=== PATIENT | male | born 1950 | race Caucasian/White ===

== ENCOUNTER 2023-12-29 08:27 | Day surgery (SDC) | payer OTHER ==
[2023-12-29] MEDS ORDERED: Lactated Ringers 1,000 ML IV ONE (09:03)
[2023-12-29] MEDS: Lactated Ringers 1,000 ML IV SCH (09:06)
[2023-12-29 09:14] VITALS: RESP 18; TEMP 98.5
[2023-12-29] MEDS ORDERED: Xylocaine-Mpf 2% 5 Ml Vial ONE (10:23)
[2023-12-29] MEDS ORDERED: DIPRIVAN 200 MG/20 ML IV ONE ×2 (10:23→10:36)
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
[2023-12-29 11:51] VITALS: BP 117/71; PULSE 92; O2SAT 92
--- NOTE | 2023-12-29 15:14 | OP ---
SURGERY DATE/TIME: 12/29/2023 4418 - [id number] PREOPERATIVE DIAGNOSIS: History of polyps, needs followup screening colonoscopy. POSTOPERATIVE DIAGNOSES: 1) Poor prep. 2) Small internal hemorrhoids. 3) Diverticulosis. 4) Transverse colon polyps, 2 of which could be removed with snare polypectomy and 1 was a little larger and flatter that could not be removed safely endoscopically at this setting. 5) Tortuous colon. 6) ASA Class III. PROCEDURES: 1) Colonoscopy to ascending colon (further passage aborted secondary to tortuous colon and poor prep). 2) Hot biopsy more sessile polyp, seemed to be proximal transverse colon (unable to be completely removed endoscopically). Ink spot tattooing of the location. 3) Hot snare polypectomy of 2 additional polyps ranging from 3 to 8 mm in the transverse colon. SURGEON: Dionisio Seymour MD ANESTHESIA: MAC. QUANTITATIVE BLOOD LOSS: Minimal. INDICATIONS: As noted above, consent obtained. DESCRIPTION OF PROCEDURE AND FINDINGS: He was taken to the endoscopy suite. MAC anesthesia induced. Digital rectal exam did not reveal any masses. He did have some internal hemorrhoids. Videocolonoscope passed up. He had semisolid stool throughout the colon. Very tortuous with his obesity. With 2 different staff members, position changes on his back and external compression by staff members, scope could be passed down the transverse colon and ascending colon but because of a combination of poor prep and tortuosity of the colon, and staff unable to reduce the loop, it could not be passed all the way to the cecum. What seemed to be in the proximal transverse colon was a polyp. It was raised a little bit, but because of the size and location, it could not be safely removed completely endoscopically at this setting with the tools here at this facility. Hot biopsy was taken for pathology. Ink spot tattooing injection submucosally to didier the location. The scope was carefully withdrawn. Two other polyps, one was about 3.5 mm and removed with hot snare polypectomy in the transverse colon. Another one was about maybe closer to 8 mm removed with hot snare polypectomy. They appeared to be removed in total. The patient had moderate diverticulosis, small to large diverticula throughout the left colon. No signs of any large mass or obstructing lesions, again with poor prep limiting the exam. Findings discussed with family in the waiting area. Will await biopsy results. If the biopsy of the [id number] polyp in the proximal transverse colon was malignancy, he likely will be offered resection. If benign, will discuss with the patient that he might be a candidate to refer to GI reasonable chance they may be able to remove endoscopically with a better prep.
== END 2023-12-29 11:50 | disposition home or self-care (01) ==
LOC: SDC 08:27
PROVIDERS: ATTEND Surgery
DX: Z12.11 Encounter for screening for malignant neoplasm of colon (principal); Z09 Encounter for follow-up examination after completed treatment for conditions other than malignant neoplasm; Z86.010 Personal history of colon polyps; K64.8 Other hemorrhoids; K57.30 Diverticulosis of large intestine without perforation or abscess without bleeding; D12.3 Benign neoplasm of transverse colon
CPT/HCPCS: 99100; J2704

== ENCOUNTER 2024-03-20 13:28 | Emergency (ER) | payer OTHER ==
[2024-03-20] MEDS ORDERED: XYLOCAINE 1% HCL 20 ML MDV IJ ONE (13:29)
[2024-03-20 13:41] VITALS: RESP 20; TEMP 97.9
--- NOTE | 2024-03-20 14:04 | ERPHSYRPT ---
- History of Present Illness Time Seen by Provider: 03/20/24 14:02 Source: patient Exam Limitations: no limitations Patient Subjective Stated Complaint: PT states "My dogs were fighting and I picked up my little dog and my big one bit me. This happened three days ago." Triage Nursing Assessment: Pt presented alert and oriented X 3, skin wpd. pt able to speak in clear full sentences. Pt reseting comfortaby in his wheel chair. pt has two puncture wounds left hand one by thumb and one lateral left wrist. Redness and swelling noted. Physician History: Patient states "My dogs were fighting and I picked up my little dog and my big one bit me. This happened three days ago." pt has two puncture wounds left hand one by thumb and one lateral left wrist. Redness and swelling noted. Timing/Duration: day(s) (Three days ago) Severity: mild Associated Symptoms: denies symptoms Allergies/Adverse Reactions: propoxyphene [From Darvon] Allergy (Verified 12/10/23 11:24) Home Medications: Atorvastatin Calcium [Lipitor] 10 mg PO DAILY 12/10/23 [History] Divalproex Sodium [Depakote] 1,000 mg PO DAILY 12/10/23 [History] Emtricitab/Rilpiviri/Tenof Ala [Odefsey Tablet] 1 each PO DAILY 12/10/23 [History] Lisinopril 10 mg [Zestril 10 MG] 5 mg PO DAILY 12/10/23 [History] Multivitamin 1 each PO DAILY 12/10/23 [History] Oxycodone HCl/Acetaminophen [Percocet 5-325 mg Tablet] 5 mg PO DAILY PRN PRN 12/10/23 [History] Paroxetine HCl 20 mg [Paxil 20 MG] 20 mg PO DAILY 12/10/23 [History] Tamsulosin HCl 0.4 mg [Flomax 0.4 MG] 0.4 mg PO DAILY 12/10/23 [History] Cholecalciferol (Vitamin D3) [Vitamin D] 1 tab PO DAILY 12/15/23 [History] Hx Tetanus, Diphtheria Vaccination/Date Given: No Hx Influenza Vaccination/Date Given: Yes Hx Pneumococcal Vaccination/Date Given: Yes Immunizations Up to Date: No Travel Risk - International Travel Have you traveled outside of the country in past 3 weeks: No - Emerging Infectious Disease Are you exhibiting symptoms associated with any current EIDs: No - Review of Systems Constitutional: No Fever, No Chills Eyes: No Symptoms Ears, Nose, & Throat: No Symptoms Respiratory: No Cough, No Dyspnea Cardiac: No Chest Pain, No Edema, No Syncope Abdominal/Gastrointestinal: No Abdominal Pain, No Nausea, No Vomiting, No Diarrhea Genitourinary Symptoms: No Dysuria Musculoskeletal: No Back Pain, No Neck Pain Skin: Other (two puncture wound on left hand), No Rash Neurological: No Dizziness, No Focal Weakness, No Sensory Changes Psychological: No Symptoms Endocrine: No Symptoms All Other Systems: Reviewed and Negative - Past Medical History Pertinent Past Medical History: Yes Neurological History: No Pertinent History ENT History: No Pertinent History Cardiac History: No Pertinent History Respiratory History: COPD, Sleep Apnea Endocrine Medical History: No Pertinent History Musculoskeletal History: Fractures GI Medical History: No Pertinent History History: No Pertinent History Psycho-Social History: Depression Male Reproductive Disorders: No Pertinent History Other Medical History: fx of hips pelvis spine ribs - Past Surgical History Past Surgical History: Yes Neuro Surgical History: No Pertinent History Cardiac: No Pertinent History Respiratory: No Pertinent History Gastrointestinal: No Pertinent History Genitourinary: No Pertinent History Musculoskeletal: Amputation, Joint Replacement, Orthopedic Surgery Male Surgical History: No Pertinent History Other Surgical History: skin CA removed, hip pelvis surg, rods in spine, throat surgery , r hip replacement - Social History Smoking Status: Current every day smoker How long have you smoked: 60 years Exposure to second hand smoke: No Drug Use: none - Social Determinants of Health Will the patient participate in the screening: Declined to provide - Nursing Vital Signs Nursing Vital Signs: Initial Vital Signs Temperature 97.9 F 03/20/24 13:37 Pulse Rate 97 H 03/20/24 13:37 Respiratory Rate 20 03/20/24 13:37 Blood Pressure 148/66 03/20/24 13:37 O2 Sat by Pulse Oximetry 98 03/20/24 13:37 Pain Scale Pain Intensity 3 - Physical Exam General Appearance: no apparent distress, alert Eye Exam: PERRL/EOMI, eyes nml inspection Ears, Nose, Throat Exam: normal ENT inspection, TMs normal, pharynx normal, moist mucous membranes Neck Exam: normal inspection, non-tender, supple, full range of motion Respiratory Exam: normal breath sounds, lungs clear, No respiratory distress Cardiovascular Exam: regular rate/rhythm, normal heart sounds, normal peripheral pulses Gastrointestinal/Abdomen Exam: soft, normal bowel sounds, No tenderness, No mass Back Exam: normal inspection, normal range of motion, No CVA tenderness, No vertebral tenderness Extremity Exam: normal inspection, normal range of motion, pelvis stable, other (two Puncture wound on left hand of dog bite) Neurologic Exam: alert, oriented x 3, cooperative, normal mood/affect, nml cerebellar function, nml station & gait, sensation nml, No motor deficits Skin Exam: normal color, warm, dry, No rash Lymphatic Exam: No adenopathy SpO2: 98 - Course Nursing assessment & vital signs reviewed: Yes Ordered Tests: Active Orders 24 hr Category Date Time Status CBC W DIFF Stat Lab 03/20/24 14:00 Ordered CMP Stat Lab 03/20/24 14:00 Ordered Medication Summary Discontinued Medications Generic Name Dose Route Start Last Admin Trade Name Freq PRN Reason Stop Dose Admin Ceftriaxone Sodium 1,000 mg 03/20/24 14:01 Ceftriaxone Sodium 1000 Mg Inj Vial IM 03/20/24 14:02 STAT ONE - Progress Progress: unchanged Counseled pt/family regarding: lab results, diagnosis, need for follow-up Medical Desision Making - Risk of complications Low Risk: Low risk of morbidity from additional dx testing or treatment - Departure Departure Disposition: Home Clinical Impression: Dog bite of left hand including fingers with infection Qualifiers: Encounter type: initial encounter Qualified Code(s): S61.452A - Open bite of left hand, initial encounter; S61.259A - Open bite of unspecified finger without damage to nail, initial encounter; L08.9 - Local infection of the skin and subcutaneous tissue, unspecified; W54.0XXA - Bitten by dog, initial encounter Condition: Stable Critical Care Time: No Referrals: SARAH RIVERA FNP [Primary Care Provider] - Follow up/PCP as directed Instructions: Wound Care (DC), Animal Bites ED Additional Instructions: Discharge/Care Plan SATHISH VILLEDA was seen on 03/20/24 in the Emergency Room. The patient was counseled regarding Diagnosis,Lab results, Imaging studies, need for follow up and when to return to the Emergency Room. Prescriptions given: Discharge Note I have spoken with the patient and/or caregivers. I have explained the patient's condition, diagnosis and treatment plan based on the information available to me at this time. I have answered the patient's and/or caregiver's questions and addressed any concerns. The patient and/or caregivers have as good understanding of the patient's diagnosis, condition and treatment plan as can be expected at this point. The vital signs have been stable. The patient's condition is stable and appropriate for discharge from the emergency department. The patient will pursue further outpatient evaluation with the primary care physician or other designated or consulting physician as outlined in the discharge instructions. The patient and/or caregivers are agreeable to this plan of care and follow-up instructions have been explained in detail. The patient and/or caregivers have received these instruction. The patient/and or caregivers are aware that any significant change in condition or worsening of symptoms should prompt an immediate return to this or the closest emergency department or call 911. SATHISH VILLEDA was seen on 03/20/24 n the Emergency Room. At that time you were treated for an emergent condition, during your visit Laboratory, Radiology and/or other procedures may have been ordered. It is very important that you follow-up with your Primary Care Physician DEMARCUS GALINDO within the next 24-48 hours to review your Emergency Room visit and the final results of testing that was ordered. Some test results such as Urine Cultures, Blood Cultures, and other cultures if ordered will not be finalized for 24-48 hours. If you do not have a Primary Care Provider please call the medical records department at [phone] ext [phone] to obtain a copy of your results or you may sign into our patient portal to obtain these results by visiting us [email or web address] and completing the following steps: 1. Click on the Patient Portal link 2. Click the Patient Self Enrollment Link to complete the enrollment form and entering your 3. Once the enrollment form is completed you will receive an email with a temporary ID and password at the email address you provided. 4. Next choose a user name and password. Your user name must be at least 4 characters long and your password must be at least 4 characters long. 5. Choose a security question from the list and provide your answer to the question. If you already have signed into the Health Portal you may access your Health Care Information 03/02 by the following steps: 1. Login to our website @ [email or web address] 2. Enter your original user name and password. FAQS The [facility] Portal is an online tool that contains your Lab Results, Radiology Reports, Visit History, Discharge Instructions and Health Summary Lab and Radiology Results will not be available for 72 hours on the portal. The Portal is a secure site, passwords are encryted and URLs are re-written so they cannot be copied and pasted. You and authorized family members are the only ones who can access your Portal. Also there is a timeout feature that protects your information if you leave the Portal page open. If you have technical difficulty please use the Contact Us link on the page this will allow you to submit any questions you have regarding the Portal or you may contact the Medical Record Department at [phone] ext [phone]. Prescriptions: clindamycin HCL [Cleocin HCl] 300 mg PO QID #40 cap
[2024-03-20] MEDS ORDERED: Rocephin 1000 MG INJ ONE (14:05)
[2024-03-20] MEDS ORDERED: XYLOCAINE 1% HCL 20 ML MDV ONE (14:06)
[2024-03-20] MEDS: Rocephin 1000 MG INJ IM ONE (14:07)
[2024-03-20 14:35] VITALS: BP 136/62; PULSE 88; O2SAT 95
[2024-03-20 14:42] LABS: Absolute Neutrophil Ct (ANC) 4.09 x10^3/uL (1.78-5.38); BASOPHIL % 0.2 % (0.2-1.2); Basophil (Absolute #) 0.01 x10^3/uL (0.01-0.08); Eosinophil % 1.2 % (0.8-7.0); Eosinophil (Absolute #) 0.07 x10^3/uL (0.04-0.54); Hematocrit 42.5 % (40.1-51.0); Hemoglobin 13.5 g/dL (13.7-17.5); IMMATURE GRAN # 0.01 x10^3u/L (0.001-0.031); IMMATURE GRAN % 0.2 % (0.001-0.429); Lymphocyte (Absolute #) 1.01 x10^3/uL (1.32-3.57); Lymphocytes % 17.8 % (21.8-53.1); Mean Cell Volume 95.5 fL (79.0-92.2); Mean Corpuscular Hemoglobin 30.3 pg (25.7-32.2); Mean Corpuscular Hgb Concent. 31.8 g/dL (32.3-36.5); Mean Platelet Volume 9.5 fL (9.4-12.4); Monocyte (Absolute #) 0.47 x10^3/uL (0.30-0.82); Monocytes % 8.3 % (5.3-12.2); Neutrophil % 72.3 % (34.0-67.9); Platelet Count 247 x10^3/uL (163-337); Red Blood Count 4.45 x10^6/uL (4.63-6.08); Red Cell Distribution Width 12.4 % (11.6-14.4); White Blood Count 5.7 x10^3/uL (4.23-9.07)
[2024-03-20] MEDS ORDERED: BACIGUENT PACKET ONE (14:47)
[2024-03-20 14:55] LABS: ALBUMIN 3.9 g/dL (3.5-5.0); ANION GAP 8.2 MEQ/L (5-15); BILIRUBIN,TOTAL 0.4 mg/dL (0.2-1.3); Calcium 9.4 mg/dL (8.4-10.2); Creatinine 1 0.75 mg/dL (0.66-1.25); EST GLOMERULAR FILTRATION RATE 94.1 ML/MIN; Potassium 4.3 mmol/L (3.5-5.1); Total Protein 7.7 g/dL (6.3-8.2)
[2024-03-20] MEDS: BACIGUENT PACKET TP ONE (15:01)
== END 2024-03-20 15:03 | disposition home or self-care (01) ==
LOC: ED 13:28
DX: S61.452A Open bite of left hand, initial encounter (principal); S61.052A Open bite of left thumb without damage to nail, initial encounter; W54.0XXA Bitten by dog, initial encounter; L08.9 Local infection of the skin and subcutaneous tissue, unspecified; Z79.899 Other long term (current) drug therapy; Z72.0 Tobacco use
CPT/HCPCS: 36415; 80053; 85025; 96372; 99283; J0696; A9270-GY

== ENCOUNTER 2024-10-04 10:14 | Day surgery (SDC) | payer OTHER ==
--- NOTE | 2024-10-04 08:11 | HP ---
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 PAST MEDICAL HISTORY: Hypertension, COPD, depression, he has skin cancer, he has had colon polyps, history of HIV in the past. MEDICATIONS: Tamsulosin, paroxetine, multivitamins, cholecalciferol, vitamin D3, oxycodone 5, tiotropium bromide, rosuvastatin, naloxone, Odefsey, fluorouracil topical cream, donepezil, divalproex, albuterol. ALLERGIES: Propoxyphene and terazosin. 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 SOCIAL HISTORY: Smokes cigars. No alcohol abuse. FAMILY HISTORY: Negative with regard to this problem. REVIEW OF SYSTEMS: Twelve systems reviewed. Negative except per preadmission questionnaire. PHYSICAL EXAMINATION: GENERAL: Height 6 feet 1 inch. BMI 37.8. No acute distress. HEENT: Sclerae nonicteric. Extraocular movements are intact. NECK: No JVD. CARDIOVASCULAR: Regular rate and rhythm. RESPIRATORY: Equal excursion, nonlabored breathing. ABDOMEN: Soft. SKIN: Chronic skin changes all over. 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 Needing wide excision. EXTREMITIES: No cyanosis or edema. NEUROLOGIC: Alert and oriented, moving all extremities symmetrically. PSYCHIATRIC: Appropriate mood and affect. IMPRESSION: History of HIV that is undetectable currently. 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 Recommend excision. Risks of bleeding and infection possibly requiring packing; hematoma; seroma; aches, pains, burning, numbness; as well as risk of involved margins possibly requiring other procedures or other treatments; risk of anesthesia, DVT, PE, pneumonia, not limited to. Otherwise, we will proceed with excisional biopsy of postauricular area and right upper arm biopsy sites as an outpatient. Otherwise, continue medications for depression, hypertension, COPD, HIV, BPH, and hyperlipidemia.
[2024-10-04] MEDS: Lactated Ringers 1,000 ML IV SCH (10:43)
[2024-10-04] MEDS ORDERED: CEFAZOLIN 2 GM/100 ML NaCl 2 GM/100 ML IVPB IV ONE (10:47)
[2024-10-04] MEDS ORDERED: celeBREX 100 MG ONE (10:48)
[2024-10-04] MEDS ORDERED: TYLENOL EXTRA STRENGTH 500 MG ONE (10:48)
[2024-10-04] MEDS ORDERED: Decadron 4 MG ONE (10:48)
[2024-10-04] MEDS: TYLENOL EXTRA STRENGTH 500 MG PO ONE (10:55)
[2024-10-04] MEDS: celeBREX 100 MG PO ONE (10:55)
[2024-10-04] MEDS: CEFAZOLIN 2 GM/100 ML NaCl 2 GM/100 ML IVPB IV SCH (10:55)
[2024-10-04] MEDS: Decadron 4 MG PO ONE (10:55)
[2024-10-04 10:59] VITALS: RESP 16
[2024-10-04] MEDS ORDERED: Sensorcaine 0.25% 10 ML ONE ×3 (11:04→12:39)
[2024-10-04 11:20] LABS: Absolute Neutrophil Ct (ANC) 3.16 x10^3/uL (1.78-5.38); BASOPHIL % 0.6 % (0.2-1.2); Basophil (Absolute #) 0.03 x10^3/uL (0.01-0.08); Eosinophil % 4.6 % (0.8-7.0); Eosinophil (Absolute #) 0.24 x10^3/uL (0.04-0.54); Hematocrit 41.3 % (40.1-51.0); IMMATURE GRAN # 0.01 x10^3u/L (0.001-0.031); IMMATURE GRAN % 0.2 % (0.001-0.429); Lymphocyte (Absolute #) 1.28 x10^3/uL (1.32-3.57); Lymphocytes % 24.4 % (21.8-53.1); Mean Corpuscular Hemoglobin 29.3 pg (25.7-32.2); Mean Corpuscular Hgb Concent. 31.5 g/dL (32.3-36.5); Mean Platelet Volume 8.7 fL (9.4-12.4); Monocyte (Absolute #) 0.52 x10^3/uL (0.30-0.82); Monocytes % 9.9 % (5.3-12.2); Neutrophil % 60.3 % (34.0-67.9); Platelet Count 265 x10^3/uL (163-337); Red Blood Count 4.44 x10^6/uL (4.63-6.08); Red Cell Distribution Width 13.1 % (11.6-14.4); White Blood Count 5.2 x10^3/uL (4.23-9.07)
[2024-10-04] MEDS ORDERED: SUBLIMAZE 100 MCG/2 ML ONE (11:25)
[2024-10-04] MEDS ORDERED: Versed 2 MG/2 ML Injection ONE (11:25)
[2024-10-04] MEDS ORDERED: propofoL IV ONE ×3 (11:25→12:47)
[2024-10-04] MEDS ORDERED: Xylocaine-Mpf 2% 5 Ml Vial ONE (11:25)
[2024-10-04 11:33] LABS: BILIRUBIN,TOTAL 0.4 mg/dL (0.2-1.3); Calcium 9.2 mg/dL (8.4-10.2); Creatinine 1 0.77 mg/dL (0.66-1.25); EST GLOMERULAR FILTRATION RATE 92.8 ML/MIN; Potassium 4.6 mmol/L (3.5-5.1); Total Protein 7.8 g/dL (6.3-8.2)
[2024-10-04 14:13] VITALS: BP 120/66; PULSE 77; TEMP 97.4; O2SAT 93
--- NOTE | 2024-10-05 10:36 | OP ---
SURGERY DATE/TIME: 10/04/2024 [id number] PREOPERATIVE DIAGNOSES: 1) History of squamous cell carcinoma, biopsy site in need of wide excision left postauricular and right upper arm. 2) History of human immunodeficiency virus. 3) History of multiple medical problems. POSTOPERATIVE DIAGNOSES: 1) History of squamous cell carcinoma, biopsy site in need of wide excision left postauricular and right upper arm. 2) History of human immunodeficiency virus. 3) History of multiple medical problems. PROCEDURES: 1) Excisional biopsy of left postauricular squamous cell carcinoma biopsy site approximately 2.2 cm with margins with intermediate closure. 2) Excisional biopsy of squamous cell biopsy site as well as second nonhealing lesion right upper arm, 2 sites excised en bloc, approximately 6 cm margins with intermediate closure. SURGEON: Dionisio Seymour MD SCREW DRIVER OPERATOR: CAMPBELL Rodriguez ESTIMATED BLOOD LOSS: Minimal. INDICATIONS: Consent obtained. DESCRIPTION OF PROCEDURE AND FINDINGS: Patient was taken to the operating room. MAC anesthesia was induced. Patient was prepped and draped in usual sterile fashion. After official time-out, no disagreement in planned procedure. Sites confirmed and marked in the preoperative holding area. He was prepped and draped in the usual sterile fashion, had to be re-prepped on his arm and prepped a wider area as well as on the side of his neck. After prepping and draping in sterile fashion, 0.25% Marcaine local injected in a field pattern around this site. In the left postauricular area, he had a little bit of area of some skin that had some skin changes a little bit farther away from the area of the squamous cell carcinoma biopsy site. This was included in the spindle-shaped excision resulting in about 2.2 cm margins. Dissection was carried down to normal-appearing subcutaneous tissue. Specimen passed off. A small rip tailer was controlled with 3-0 Vicryl deep to the wound. Otherwise, flaps were mobilized underneath on either side and brought together with some 3-0 Vicryl deep dermis and subcutaneous. Skin closed with 4-0 Vicryl in running subcuticular fashion. Steri-Strips, sterile dressing applied. Attention was then turned to the other side. Gloves and instruments were changed. This area was a darkened area that the patient's family said was original squamous cell carcinoma biopsy site. There was also a nonhealing lesion that was more cephalad. So, both of these were excised en bloc before going down to normal-appearing skin around either side. Dissection carried down deep in the subcutaneous. Specimen measured about 6 cm en bloc with the 2 lesion sites. Undermined the flaps on either side. 3-0 Vicryl used to control some pulsatile perforators in the base of the wound. Good hemostasis noted. Wound was irrigated out. Then, the flaps were brought back to the midline with interrupted 3-0 Vicryl. Skin closed with 4-0 Vicryl in running subcuticular fashion. Steri-Strips, sterile dressing applied. Patient tolerated the procedure well. There were no immediate complications. Findings were discussed with family out in the waiting area
== END 2024-10-04 14:29 | disposition home or self-care (01) ==
LOC: SDC 10:14
PROVIDERS: ATTEND Surgery
DX: C44.622 Squamous cell carcinoma of skin of right upper limb, including shoulder (principal); C44.629 Squamous cell carcinoma of skin of left upper limb, including shoulder; B20 Human immunodeficiency virus [HIV] disease
CPT/HCPCS: 36415; 80053; 85025; 93005; 99100; J0690; J2250; J2704; J3010; A9270-GY